=== PATIENT | female | born 1975 | race Caucasian/White ===

== ENCOUNTER 2019-12-07 08:44 | Emergency (ER) | payer OTHER ==
[~2019-12-07] VITALS: Ht 180.3 cm; Wt 68.2 kg
[2019-12-07 08:48] VITALS: Ht 180.3 cm; Wt 68.2 kg
[2019-12-07 09:16] LABS: BASOPHILS 0.7 % (0-2); EOSINOPHILS 3.2 % (0-7); HEMATOCRIT 43.6 % (36.0-48.0); HEMOGLOBIN 14.3 g/dL (12-16); IMMATURE GRANULOCYTES 0.5 % (0-5); LYMPHOCYTES 36.9 % (15-50); MCH 27.6 pg (26.0-34.0); MCHC 32.8 g/dL (31.0-37.0); MCV 84.2 fL (80.0-100.0); MEAN PLATELET VOLUME 8.6 fL (7.4-10.4); MONOCYTES 5.1 % (2-11); NEUTROPHILS 53.6 % (40-80); PLATELET COUNT 364 10x3/uL (130-400); RBC 5.18 10x6/uL (4.00-5.40); RDW 15.2 % (11.5-14.5)
[2019-12-07 09:17] LABS: CALC OSMOLALITY 290 mosm/kg (275-300); CALCIUM 8.7 mg/dL (8.5-10.1); CHLORIDE - SERUM 111 mmol/L (98-107); CREATININE - SERUM 0.8 mg/dL (0.6-1.3); GLUCOSE 76 mg/dL (74-106); POTASSIUM - SERUM 3.6 mmol/L (3.5-5.1); SODIUM 148 mmol/L (136-145); UREA NITROGEN 6 mg/dL (7-18); eGFR NON AFRICAN AMERICAN 82 mL/min (90-120)
[2019-12-07 09:23] LABS: BILIRUBIN NEGATIVE (NEGATIVE); KETONE NEGATIVE (NEGATIVE); NITRITE NEGATIVE (NEGATIVE); UROBILINOGEN NORMAL mg/dL (< 2)
[2019-12-07 09:24] LABS: BACTERIA MODERATE /HPF (NONE SEEN); EPITHELIAL CELLS 0-5 /hpf (0-5); WHITE CELLS - URINE 0-5 HPF (0-4)
[2019-12-07 09:25] LABS: ALBUMIN 3.8 g/dL (3.4-5.0); ALKALINE PHOSPHATASE 95 U/L (30-120); ALT (SGPT) 20 U/L (10-68); BILIRUBIN - TOTAL 0.14 mg/dL (0.2-1.3); PROTEIN - SERUM 7.1 g/dL (6.4-8.2)
[2019-12-07 09:28] LABS: UDS - AMPHET NEGATIVE QUAL (NEGATIVE); UDS - BARB NEGATIVE QUAL (NEGATIVE); UDS - BENZO NEGATIVE QUAL (NEGATIVE); UDS - COCAINE NEGATIVE QUAL (NEGATIVE); UDS - OPIATE NEGATIVE QUAL (NEGATIVE); UDS - PCP NEGATIVE QUAL (NEGATIVE); UDS - THC POSITIVE QUAL (NEGATIVE)
[2019-12-07] MEDS ORDERED: KEFLEX500 MG PO (10:15)
[2019-12-07] MEDS ORDERED: CLEOCIN HCL300 MG PO (10:16)
[2019-12-07] MEDS ORDERED: IBUPROFEN800 MG PO (10:16)
[2019-12-07] MEDS ORDERED: CYCLOBENZAPRINE10 MG PO (10:16)
[2019-12-07] MEDS ORDERED: ACETAMINOPHEN500 M1 PO (10:16)
[2019-12-07 11:39] VITALS: BP 130/88
== END 2019-12-07 11:40 | disposition home or self-care (01) ==
LOC: D.ER 08:44
PROVIDERS: Family Medicine
DX: S00.01XA Abrasion of scalp, initial encounter (principal); B99.9 Unspecified infectious disease; X58.XXXA Exposure to other specified factors, initial encounter; L03.90 Cellulitis, unspecified

== ENCOUNTER 2020-06-19 02:50 | Inpatient (IN) | payer OTHER ==
[~2020-06-19] VITALS: Ht 180.3 cm; Wt 72.6 kg
[~2020-06-19 02:50] MED LIST: ACETAMINOPHEN500 M1 PO; CLEOCIN HCL300 MG PO; CYCLOBENZAPRINE10 MG PO; IBUPROFEN800 MG PO; KEFLEX500 MG PO
[2020-06-19 03:31] LABS: BASOPHILS 0.6 % (0-2); EOSINOPHILS 3.8 % (0-7); HEMATOCRIT 37.2 % (36.0-48.0); HEMOGLOBIN 12.2 g/dL (12-16); IMMATURE GRANULOCYTES 0.4 % (0-5); LYMPHOCYTE ABS# 2.43 10x3/uL (1.18-3.74); LYMPHOCYTES 23.8 % (15-50); MCH 27.4 pg (26.0-34.0); MCHC 32.8 g/dL (31.0-37.0); MCV 83.6 fL (80.0-100.0); MEAN PLATELET VOLUME 8.1 fL (7.4-10.4); MONOCYTES 7.7 % (2-11); NEUTROPHIL ABS# 6.49 10x3/uL (1.56-6.13); NEUTROPHILS 63.7 % (40-80); PLATELET COUNT 370 10x3/uL (130-400); RBC 4.45 10x6/uL (4.00-5.40); RDW 13.9 % (11.5-14.5); WBC 10.2 10x3/uL (4.8-10.8)
[2020-06-19 03:53] LABS: CALC OSMOLALITY 284 mosm/kg (275-300); CALCIUM 9.1 mg/dL (8.5-10.1); CARBON DIOXIDE 29.7 mmol/L (21.0-32.0); CHLORIDE - SERUM 105 mmol/L (98-107); CREATININE - SERUM 0.8 mg/dL (0.6-1.3); GLUCOSE 105 mg/dL (74-106); POTASSIUM - SERUM 3.7 mmol/L (3.5-5.1); SODIUM 144 mmol/L (136-145); UREA NITROGEN 8 mg/dL (7-18); eGFR NON AFRICAN AMERICAN 81 mL/min (90-120)
[2020-06-19 03:59] LABS: ALBUMIN 3.4 g/dL (3.4-5.0); ALKALINE PHOSPHATASE 86 U/L (30-120); ALT (SGPT) 21 U/L (10-68); C-REACTIVE PROTEIN 1.5 mg/dL (0.0-0.9); CREATINE KINASE 77 UL (21-215); PROTEIN - SERUM 6.7 g/dL (6.4-8.2)
[2020-06-19 04:00] VITALS: BP 116/69
[2020-06-19 04:01] VITALS: BP 116/78
[2020-06-19] MEDS ORDERED: IBUPROFEN800 MG PO (04:38)
[2020-06-19 06:13] VITALS: BMI 22.3
[2020-06-19 08:57] VITALS: BP 109/69
--- NOTE | 2020-06-19 09:00 | NUR ---
ALERT AND ORIENTED AND UP ADLIB. ERRYTHEMA AND SWELLING NOTED TO LEFT 3RD DIGIT. NORCO GIVEN AND EFFECTIVE FOR PAIN 09/03.
[2020-06-19 12:08] LABS: ERYTHROCYTE SEDIMENTATION RATE 10 mm/hr (0-20)
[2020-06-19 12:21] VITALS: BP 132/76
--- NOTE | 2020-06-19 13:00 | NUR ---
CEZAR LOZA HERE WITH I&D DONE USING STERILE TECHNIQUE AT BEDSIDE WITH LOCAL ANESTHETIC GIVEN VIA BLOCK WITH DRESSING APPLIED. ENCOURAGED TO USE CALL LIGHT FOR ASSSIT.
[2020-06-19 16:19] VITALS: Ht 180.3 cm; Wt 72.6 kg
[2020-06-19 16:45] VITALS: BP 121/84
[2020-06-19 20:13] VITALS: BP 124/79
[2020-06-20 04:00] VITALS: BP 120/74
[2020-06-20 05:13] LABS: BASOPHILS 0.9 % (0-2); EOSINOPHILS 8.4 % (0-7); HEMATOCRIT 37.7 % (36.0-48.0); IMMATURE GRANULOCYTES 0.4 % (0-5); LYMPHOCYTE ABS# 2.02 10x3/uL (1.18-3.74); LYMPHOCYTES 37.6 % (15-50); MCH 26.7 pg (26.0-34.0); MCHC 31.8 g/dL (31.0-37.0); MEAN PLATELET VOLUME 8.1 fL (7.4-10.4); MONOCYTES 8.8 % (2-11); NEUTROPHIL ABS# 2.36 10x3/uL (1.56-6.13); NEUTROPHILS 43.9 % (40-80); PLATELET COUNT 353 10x3/uL (130-400); RBC 4.49 10x6/uL (4.00-5.40); RDW 14.2 % (11.5-14.5)
[2020-06-20 05:14] LABS: WBC 5.4 10x3/uL (4.8-10.8)
[2020-06-20 05:35] LABS: ALBUMIN 2.6 g/dL (3.4-5.0); ALKALINE PHOSPHATASE 73 U/L (30-120); ALT (SGPT) 16 U/L (10-68); BILIRUBIN - TOTAL 0.11 mg/dL (0.2-1.3); CALC OSMOLALITY 284 mosm/kg (275-300); CALCIUM 8.4 mg/dL (8.5-10.1); CARBON DIOXIDE 28.8 mmol/L (21.0-32.0); CHLORIDE - SERUM 108 mmol/L (98-107); CREATININE - SERUM 0.7 mg/dL (0.6-1.3); GLUCOSE 100 mg/dL (74-106); POTASSIUM - SERUM 3.9 mmol/L (3.5-5.1); PROTEIN - SERUM 5.8 g/dL (6.4-8.2); SODIUM 143 mmol/L (136-145); eGFR NON AFRICAN AMERICAN > 90 mL/min (90-120)
[2020-06-20 05:38] LABS: UREA NITROGEN 13 mg/dL (7-18)
[2020-06-20 05:52] LABS: BILIRUBIN NEGATIVE (NEGATIVE); KETONE NEGATIVE (NEGATIVE); NITRITE NEGATIVE (NEGATIVE); UROBILINOGEN NORMAL mg/dL (< 2)
[2020-06-20 06:01] LABS: UDS - AMPHET POSITIVE QUAL (NEGATIVE); UDS - BARB NEGATIVE QUAL (NEGATIVE); UDS - BENZO NEGATIVE QUAL (NEGATIVE); UDS - COCAINE NEGATIVE QUAL (NEGATIVE); UDS - OPIATE POSITIVE QUAL (NEGATIVE); UDS - PCP NEGATIVE QUAL (NEGATIVE); UDS - THC POSITIVE QUAL (NEGATIVE)
[2020-06-20 08:36] VITALS: BP 128/86
[2020-06-20 12:39] VITALS: BP 129/74
[2020-06-20 16:51] VITALS: BP 116/79
--- NOTE | 2020-06-20 20:30 | NUR ---
LYING QUEITLY WITH NO DISTRESS NOTED. NO COMPLAINTS VOICED. DRESSING TO LEFT FOOT INTACT WITHOUT DRAINAGE NOTED. CL IN REACH
[2020-06-20 20:38] VITALS: BP 106/75
[2020-06-21 04:41] LABS: BASOPHILS 1.3 % (0-2); EOSINOPHILS 7.9 % (0-7); HEMATOCRIT 37.1 % (36.0-48.0); HEMOGLOBIN 11.9 g/dL (12-16); IMMATURE GRANULOCYTES 0.3 % (0-5); LYMPHOCYTE ABS# 2.13 10x3/uL (1.18-3.74); LYMPHOCYTES 34.4 % (15-50); MCH 26.9 pg (26.0-34.0); MCHC 32.1 g/dL (31.0-37.0); MCV 83.7 fL (80.0-100.0); MEAN PLATELET VOLUME 8.2 fL (7.4-10.4); MONOCYTES 7.1 % (2-11); NEUTROPHIL ABS# 3.03 10x3/uL (1.56-6.13); PLATELET COUNT 359 10x3/uL (130-400); RBC 4.43 10x6/uL (4.00-5.40); WBC 6.2 10x3/uL (4.8-10.8)
[2020-06-21 05:08] LABS: ALBUMIN 2.5 g/dL (3.4-5.0); ALKALINE PHOSPHATASE 64 U/L (30-120); ALT (SGPT) 19 U/L (10-68); BILIRUBIN - TOTAL 0.16 mg/dL (0.2-1.3); CALC OSMOLALITY 278 mosm/kg (275-300); CALCIUM 8.2 mg/dL (8.5-10.1); CARBON DIOXIDE 24.5 mmol/L (21.0-32.0); CHLORIDE - SERUM 109 mmol/L (98-107); CREATININE - SERUM 0.7 mg/dL (0.6-1.3); GLUCOSE 108 mg/dL (74-106); POTASSIUM - SERUM 3.8 mmol/L (3.5-5.1); PROTEIN - SERUM 5.4 g/dL (6.4-8.2); SODIUM 140 mmol/L (136-145); UREA NITROGEN 11 mg/dL (7-18); eGFR NON AFRICAN AMERICAN > 90 mL/min (90-120)
--- NOTE | 2020-06-21 05:11 | NUR ---
I have reviewed this patient and I concur with the Shift Assessment completed by the Licensed Practical Nurse today this shift.
[2020-06-21 05:26] VITALS: BP 144/93
--- NOTE | 2020-06-21 07:54 | NUR ---
RESTING IN BED, NO DISTRESS NOTED, EYES CLOSED, REC CALL FROM LAB THAT PT HAS MRSA IN TOE, ISOLATION SET UP
[2020-06-21 08:28] VITALS: BP 147/97
[2020-06-21 12:01] VITALS: BP 106/57
[2020-06-21 16:12] VITALS: BP 124/61
[2020-06-21 23:34] VITALS: BP 102/72
[2020-06-22 05:39] LABS: BASOPHILS 1.2 % (0-2); EOSINOPHILS 8.2 % (0-7); HEMATOCRIT 37.1 % (36.0-48.0); HEMOGLOBIN 11.8 g/dL (12-16); IMMATURE GRANULOCYTES 0.4 % (0-5); LYMPHOCYTE ABS# 1.98 10x3/uL (1.18-3.74); LYMPHOCYTES 34.7 % (15-50); MCH 26.9 pg (26.0-34.0); MCHC 31.8 g/dL (31.0-37.0); MCV 84.7 fL (80.0-100.0); MEAN PLATELET VOLUME 8.1 fL (7.4-10.4); MONOCYTES 7.2 % (2-11); NEUTROPHIL ABS# 2.76 10x3/uL (1.56-6.13); NEUTROPHILS 48.3 % (40-80); PLATELET COUNT 338 10x3/uL (130-400); RBC 4.38 10x6/uL (4.00-5.40); WBC 5.7 10x3/uL (4.8-10.8)
[2020-06-22 06:19] VITALS: BP 111/75
[2020-06-22 06:21] LABS: ALBUMIN 2.5 g/dL (3.4-5.0); ALKALINE PHOSPHATASE 65 U/L (30-120); ALT (SGPT) 15 U/L (10-68); BILIRUBIN - TOTAL 0.17 mg/dL (0.2-1.3); CALC OSMOLALITY 278 mosm/kg (275-300); CALCIUM 8.4 mg/dL (8.5-10.1); CARBON DIOXIDE 29.6 mmol/L (21.0-32.0); CHLORIDE - SERUM 108 mmol/L (98-107); CREATININE - SERUM 0.7 mg/dL (0.6-1.3); GLUCOSE 97 mg/dL (74-106); POTASSIUM - SERUM 3.9 mmol/L (3.5-5.1); PROTEIN - SERUM 5.5 g/dL (6.4-8.2); SODIUM 141 mmol/L (136-145); UREA NITROGEN 8 mg/dL (7-18); eGFR NON AFRICAN AMERICAN > 90 mL/min (90-120)
[2020-06-22 09:36] VITALS: BP 135/80
[2020-06-22] MEDS ORDERED: PROTONIX40 MG PO (11:21)
[2020-06-22] MEDS ORDERED: BACTRIM DS TAB1 EAC1 PO (11:22)
[2020-06-22 12:32] VITALS: BP 147/71
--- NOTE | 2020-06-22 15:55 | MORECARE ---
CASE MANAGEMENT DISCHARGE SUMMARY PATIENT: EVAN SANTIAGO UNIT: [id number] ADM DATE: 06/19/20 AGE: 45 : 71 SEX: F ROOM/BED: D.2225 AUTHOR: MALAIKA,DOC PHYSICIAN: REFERRING PHYSICIAN: VERONICA BOWMAN DO DATE OF SERVICE: 06/22/20 Case Management Discharge Planning Summary CT Patient Name: EVAN SANTIAGO Attending MD : VERONICA TRIPATHI Medical Record: [id number] Encounter : [id number] Facility : [address] [place] [address] Medical Admission Date : 06/19/2020 3:15 Center Discharge Date : [address] [place] [address] Date of : DC Plan ID : [id number] Age/Sex/Martia : 45/ F/X Printed on : 06/22/20 15:54 CT DCP Review Details Anticipated D/C: Expected LOS : Case Status : INITIATED - Initial Reviewe: [id number] - Annemarie Johnson Initial Review: 06/19/2020 Planned Disposi: - Final Discharge: - Final Reviewer : : Final Review : Comments CT Entered Date Type Reviewer 06/22/20 14:51 CT Discharge Planning Annemarie Johnson Comment CM MET WITH PATIENT VIA TELEPHONE AFTER OBTAINING VERBAL CONSENT. DISCUSSED AVAILABILITY/NEEDS OF HOME HEALTH, REHAB, AND MEDICAL EQUIPMENT. PATIENT WILL NEED HOME HEALTH FOR DAILY DRESSING CHANGES. SHE STATES NO PREFERENCE ON HOME HEALTH COMPANY. I HAVE SENT FIRST REFERRAL TO [facility]. PATIENT WILL NEED POST OP SHOE BEFORE DISCHARGE. NO OTHER NEEDS IDENTIFIED. ANTICIPATE DC TODAY PENDING A START OF CARE DATE FROM HOME HEALTH. CM TO FOLLOW AND ASSIST NEEDED. DCP Focus Questions & Answers DCP Screen High Risk Factors: None Walking limitation: Patient stated self rated Yes walking limitation present? Age: 45 - 64 Prior living environment: Lives Alone Disability ranking: Grade 1: No significant disability DCP Evaluation Patient's ability to cope with chronic illness d. No chronic illness Patient and/or caregiver agree upon recommended Yes discharge plan? Patient's current cognitive status: *Oriented to person, place, situation, time and present Functional screen assessment: New onset in difficulty in gait, balance, or transfer difficulties Physical Status: Independent with ADL's Functional screen comments: WOUND TO FOOT Living Arrangements: Home Alone with Support Other Equipment comments: POST OP SHOE Living arrangements comments: BOY FRIEND Baseline cognitive status: *Oriented to person, place, situation, time and present Physical environment modification needed / No anticipated for discharge: Planned post hospital services available for Yes patient? Pharmacy name(s): [facility] Planned post hospital services covered by Yes insurance plan? Does Patient have transportation to get home and Yes to follow-up medical appointments when discharged from the hospital? Would patient like to participate in any Care Not applicable Coordination programs (if applicable): Other Care Coordination programs/comments: [facility] Does the patient have electricity at home? Yes Does the patient have running water in their Yes house? Equipment in use: None Mental health screen: No mental health history DCP Re-evaluation Would patient like to participate in any Care Not applicable Coordination programs (if applicable): Provider Networking Review Da : 06/23/19ervice Ty: Home Health Care Reviewer : Annemarie Johnson Referral [id number] Provider : [facility] Final Provi: N [facility] EVAN SANTIAGO MR#: [id number] /Age/Sex/Xtjwen83-Heo-00 //F /X Attending Physician Name: MARYAM BOWMAN [id number] Patient Account:[id number] [facility] Page -1 of 1 All edits/amendments must be made on the electronic document DICTATION DATE: 06/22/201553 ASBESTOS HAZARD ABATEMENT WORKER: ESTHER 06/22/201553 RPT#: [id number] DC DATE: STATUS: ADM IN [facility] [address] [place] [address] END OF REPORT
[2020-06-22] MEDS ORDERED: HYDROCODONE-AC1 EAC2 PO (15:56)
--- NOTE | 2020-06-22 16:49 | NUR ---
DISCHARGE INSTURCTIONS EXPLAINED TO PATIENT WITH UNDERSTANDING VERBALIZED. IV REMOVED.
--- NOTE | 2020-06-22 17:33 | MORECARE ---
CASE MANAGEMENT DISCHARGE SUMMARY PATIENT: EVAN SANTIAGO UNIT: [id number] ADM DATE: 06/19/20 AGE: 45 : 71 SEX: F ROOM/BED: D.2225 AUTHOR: MALAIKA,DOC PHYSICIAN: REFERRING PHYSICIAN: VERONICA BOWMAN DO DATE OF SERVICE: 06/22/20 Case Management Discharge Planning Summary CT Patient Name: EVAN SANTIAGO Attending MD : VERONICA TRIPATHI Medical Record: [id number] Encounter : [id number] Facility : [address] [place] [address] Medical Admission Date : 06/19/2020 3:15 Center Discharge Date : 06/22/[address] [place] [address] Date of : DC Plan ID : [id number] Age/Sex/Martia : 45/ F/X Printed on : 06/22/20 17:32 CT DCP Review Details Anticipated D/C: Expected LOS : Case Status : INITIATED - Initial Reviewe: [id number] - Annemarie Johnson Initial Review: 06/19/2020 Planned Disposi: - Final Discharge: - Final Reviewer : : Final Review : Comments CT Entered Date Type Reviewer 06/22/20 14:51 CT Discharge Planning Annemarie Johnson Comment CM MET WITH PATIENT VIA TELEPHONE AFTER OBTAINING VERBAL CONSENT. DISCUSSED AVAILABILITY/NEEDS OF HOME HEALTH, REHAB, AND MEDICAL EQUIPMENT. PATIENT WILL NEED HOME HEALTH FOR DAILY DRESSING CHANGES. SHE STATES NO PREFERENCE ON HOME HEALTH COMPANY. I HAVE SENT FIRST REFERRAL TO [facility]. PATIENT WILL NEED POST OP SHOE BEFORE DISCHARGE. NO OTHER NEEDS IDENTIFIED. ANTICIPATE DC TODAY PENDING A START OF CARE DATE FROM HOME HEALTH. CM TO FOLLOW AND ASSIST NEEDED. DCP Focus Questions & Answers DCP Screen High Risk Factors: None Walking limitation: Patient stated self rated Yes walking limitation present? Age: 45 - 64 Prior living environment: Lives Alone Disability ranking: Grade 1: No significant disability DCP Evaluation Patient's ability to cope with chronic illness d. No chronic illness Patient and/or caregiver agree upon recommended Yes discharge plan? Patient's current cognitive status: *Oriented to person, place, situation, time and present Functional screen assessment: New onset in difficulty in gait, balance, or transfer difficulties Physical Status: Independent with ADL's Functional screen comments: WOUND TO FOOT Living Arrangements: Home Alone with Support Other Equipment comments: POST OP SHOE Living arrangements comments: BOY FRIEND Baseline cognitive status: *Oriented to person, place, situation, time and present Physical environment modification needed / No anticipated for discharge: Planned post hospital services available for Yes patient? Pharmacy name(s): [facility] Planned post hospital services covered by Yes insurance plan? Does Patient have transportation to get home and Yes to follow-up medical appointments when discharged from the hospital? Would patient like to participate in any Care Not applicable Coordination programs (if applicable): Other Care Coordination programs/comments: [facility] Does the patient have electricity at home? Yes Does the patient have running water in their Yes house? Equipment in use: None Mental health screen: No mental health history DCP Re-evaluation Would patient like to participate in any Care Not applicable Coordination programs (if applicable): Provider Networking Review Da : 06/23/19ervice Ty: Home Health Care Reviewer : Annemarie Johnson Referral [id number] Provider : [facility] Final Provi: N [facility] EVAN SANTIAGO MR#: [id number] /Age/Sex/Gibowp87-Tmz-82 /45/F /X Attending Physician Name: COLBYMARYAM [id number] Patient Account:[id number] [facility] Page -1 of 1 All edits/amendments must be made on the electronic document DICTATION DATE: 06/22/201731 MANUFACTURING COORDINATOR: ESTHER 06/22/201731 RPT#: [id number] DC DATE:06/22/20 STATUS: DIS IN [facility] [address] [place] [address] END OF REPORT
--- NOTE | 2020-06-23 09:14 | MORECARE ---
CASE MANAGEMENT DISCHARGE SUMMARY PATIENT: EVAN SANTIAGO UNIT: [id number] ADM DATE: 06/19/20 AGE: 45 : 71 SEX: F ROOM/BED: D.2225 AUTHOR: MALAIKA,DOC PHYSICIAN: REFERRING PHYSICIAN: VERONICA BOWMAN DO DATE OF SERVICE: 06/23/20 Case Management Discharge Planning Summary CT Patient Name: EVAN SANTIAGO Attending MD : VERONICA TRIPATHI Medical Record: [id number] Encounter : [id number] Facility : [address] [place] [address] Medical Admission Date : 06/19/2020 3:15 Center Discharge Date : 06/22/[address] [place] [address] Date of : DC Plan ID : [id number] Age/Sex/Martia : 45/ F/X Printed on : 06/23/20 9:13 CT DCP Review Details Anticipated D/C: Expected LOS : Case Status : INITIATED - Initial Reviewe: [id number] - Annemarie Johnson Initial Review: 06/19/2020 Planned Disposi: - Final Discharge: - Final Reviewer : : Final Review : Comments CT Entered Date Type Reviewer 06/22/20 14:51 CT Discharge Planning Annemarie Johnson Comment CM MET WITH PATIENT VIA TELEPHONE AFTER OBTAINING VERBAL CONSENT. DISCUSSED AVAILABILITY/NEEDS OF HOME HEALTH, REHAB, AND MEDICAL EQUIPMENT. PATIENT WILL NEED HOME HEALTH FOR DAILY DRESSING CHANGES. SHE STATES NO PREFERENCE ON HOME HEALTH COMPANY. I HAVE SENT FIRST REFERRAL TO [facility]. PATIENT WILL NEED POST OP SHOE BEFORE DISCHARGE. NO OTHER NEEDS IDENTIFIED. ANTICIPATE DC TODAY PENDING A START OF CARE DATE FROM HOME HEALTH. CM TO FOLLOW AND ASSIST NEEDED. DCP Focus Questions & Answers DCP Screen High Risk Factors: None Walking limitation: Patient stated self rated Yes walking limitation present? Age: 45 - 64 Prior living environment: Lives Alone Disability ranking: Grade 1: No significant disability DCP Evaluation Patient's ability to cope with chronic illness d. No chronic illness Patient and/or caregiver agree upon recommended Yes discharge plan? Patient's current cognitive status: *Oriented to person, place, situation, time and present Functional screen assessment: New onset in difficulty in gait, balance, or transfer difficulties Physical Status: Independent with ADL's Functional screen comments: WOUND TO FOOT Living Arrangements: Home Alone with Support Other Equipment comments: POST OP SHOE Living arrangements comments: BOY FRIEND Baseline cognitive status: *Oriented to person, place, situation, time and present Physical environment modification needed / No anticipated for discharge: Planned post hospital services available for Yes patient? Pharmacy name(s): [facility] Planned post hospital services covered by Yes insurance plan? Does Patient have transportation to get home and Yes to follow-up medical appointments when discharged from the hospital? Would patient like to participate in any Care Not applicable Coordination programs (if applicable): Other Care Coordination programs/comments: [facility] Does the patient have electricity at home? Yes Does the patient have running water in their Yes house? Equipment in use: None Mental health screen: No mental health history DCP Re-evaluation Would patient like to participate in any Care Not applicable Coordination programs (if applicable): Provider Networking Review Da : 06/23/19ervice Ty: Home Health Care Reviewer : Annemarie Johnson Referral [id number] Provider : [facility] Final Provi: N [facility] EVAN SANTIAGO MR#: [id number] /Age/Sex/Knqkiq87-Ypw-48 /45/F /X Attending Physician Name: COLBYMARYAM [id number] Patient Account:[id number] [facility] Page -1 of 1 All edits/amendments must be made on the electronic document DICTATION DATE: 06/23/20912 CIRCLE EDGER: ESTHER 06/23/20912 RPT#: [id number] DC DATE:06/22/20 STATUS: DIS IN [facility] [address] [place] [address] END OF REPORT
--- NOTE | 2020-06-23 11:23 | MORECARE ---
CASE MANAGEMENT DISCHARGE SUMMARY PATIENT: EVAN SANTIAGO UNIT: [id number] ADM DATE: 06/19/20 AGE: 45 : 71 SEX: F ROOM/BED: D.2225 AUTHOR: MALAIKA,DOC PHYSICIAN: REFERRING PHYSICIAN: VERONICA BOWMAN DO DATE OF SERVICE: 06/23/20 Case Management Discharge Planning Summary CT Patient Name: EVAN SANTIAGO Attending MD : VERONICA TRIPATHI Medical Record: [id number] Encounter : [id number] Facility : [address] [place] [address] Medical Admission Date : 06/19/2020 3:15 Center Discharge Date : 06/22/[address] [place] [address] Date of : DC Plan ID : [id number] Age/Sex/Martia : 45/ F/X Printed on : 06/23/20 11:22 CT DCP Review Details Anticipated D/C: Expected LOS : Case Status : INITIATED - Initial Reviewe: [id number] - Annemarie Johnson Initial Review: 06/19/2020 Planned Disposi: - Final Discharge: - Final Reviewer : : Final Review : Comments CT Entered Date Type Reviewer 06/22/20 14:51 CT Discharge Planning Annemarie Johnson Comment CM MET WITH PATIENT VIA TELEPHONE AFTER OBTAINING VERBAL CONSENT. DISCUSSED AVAILABILITY/NEEDS OF HOME HEALTH, REHAB, AND MEDICAL EQUIPMENT. PATIENT WILL NEED HOME HEALTH FOR DAILY DRESSING CHANGES. SHE STATES NO PREFERENCE ON HOME HEALTH COMPANY. I HAVE SENT FIRST REFERRAL TO [facility]. PATIENT WILL NEED POST OP SHOE BEFORE DISCHARGE. NO OTHER NEEDS IDENTIFIED. ANTICIPATE DC TODAY PENDING A START OF CARE DATE FROM HOME HEALTH. CM TO FOLLOW AND ASSIST NEEDED. DCP Focus Questions & Answers DCP Screen High Risk Factors: None Walking limitation: Patient stated self rated Yes walking limitation present? Age: 45 - 64 Prior living environment: Lives Alone Disability ranking: Grade 1: No significant disability DCP Evaluation Patient's ability to cope with chronic illness d. No chronic illness Patient and/or caregiver agree upon recommended Yes discharge plan? Patient's current cognitive status: *Oriented to person, place, situation, time and present Functional screen assessment: New onset in difficulty in gait, balance, or transfer difficulties Physical Status: Independent with ADL's Functional screen comments: WOUND TO FOOT Living Arrangements: Home Alone with Support Other Equipment comments: POST OP SHOE Living arrangements comments: BOY FRIEND Baseline cognitive status: *Oriented to person, place, situation, time and present Physical environment modification needed / No anticipated for discharge: Planned post hospital services available for Yes patient? Pharmacy name(s): [facility] Planned post hospital services covered by Yes insurance plan? Does Patient have transportation to get home and Yes to follow-up medical appointments when discharged from the hospital? Would patient like to participate in any Care Not applicable Coordination programs (if applicable): Other Care Coordination programs/comments: [facility] Does the patient have electricity at home? Yes Does the patient have running water in their Yes house? Equipment in use: None Mental health screen: No mental health history DCP Re-evaluation Would patient like to participate in any Care Not applicable Coordination programs (if applicable): Provider Networking Review Da : 06/23/19ervice Ty: Home Health Care Reviewer : Annemarie Johnson Referral [id number] Provider : [facility] Final Provi: N [facility] EVAN SANTIAGO MR#: [id number] /Age/Sex/Brmvcp00-Qoh-55 /45/F /X Attending Physician Name: COLBYMARYAM [id number] Patient Account:[id number] [facility] Page -1 of 1 All edits/amendments must be made on the electronic document DICTATION DATE: 06/23/20 112 INDUSTRIAL INSULATOR: ESTHER 06/23/20 112 RPT#: [id number] DC DATE:06/22/20 STATUS: DIS IN [facility] [address] [place] [address] END OF REPORT
== END 2020-06-22 17:00 | disposition home health service (06) | DRG 517 ==
LOC: D.ER 02:50 → D.MS 03:15
PROVIDERS: Family Medicine; ADMIT Family Medicine; ATTEND Family Medicine
PROC: 0QBR0ZZ Excision of Left Toe Phalanx, Open Approach (ICD-10-PCS; principal; 2020-06-19)
DX: M86.172 Other acute osteomyelitis, left ankle and foot (principal); F15.90 Other stimulant use, unspecified, uncomplicated; F12.90 Cannabis use, unspecified, uncomplicated; F11.90 Opioid use, unspecified, uncomplicated; B95.62 Methicillin resistant Staphylococcus aureus infection as the cause of diseases classified elsewhere; L03.032 Cellulitis of left toe; Z72.0 Tobacco use